=== PATIENT | female | born 1990 | race American Indian/Alaskan Native ===

== ENCOUNTER 2025-09-09 18:50 | Emergency (ER) | payer MEDICAID, SELFPAY ==
[2025-09-09 18:53] VITALS: PULSE 76
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
[2025-09-09 19:31] VITALS: BP 110/70; PULSE 67; RESP 18; TEMP 37.1; O2SAT 96
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
[2025-09-09 21:10] LABS: HCG Qualitative,Urine Negative
== END 2025-09-09 22:50 | disposition home or self-care (01) ==
PROVIDERS: Emergency Provider Emergency Medicine
DX: S39.011A Strain of muscle, fascia and tendon of abdomen, initial encounter (principal); S39.93XA Unspecified injury of pelvis, initial encounter; M54.50 Low back pain, unspecified; V43.52XA Car driver injured in collision with other type car in traffic accident, initial encounter
CPT/HCPCS: 72100; 72170; 81025; 99282